=== PATIENT | female | born 1990 | race Hispanic/Latino ===

== ENCOUNTER 2020-05-16 08:38 | Emergency (ER) | payer OTHER ==
[~2020-05-16] VITALS: Ht 154.9 cm; Wt 84.4 kg
[2020-05-16] MEDS ORDERED: TETRACAINE HCL 0.5% OPTH SOLN 4 ML BTL ONE (08:54)
[2020-05-16] MEDS ORDERED: FLUORESCEIN SOD(OPTH) 1 MG STRP ONE (08:55)
[2020-05-16] MEDS ORDERED: CROMOLYN SODIUM10 ML OU ×2 (09:30→12:34)
[2020-05-16] MEDS ORDERED: ACULAR5 ML OU (09:39)
[2020-05-16] MEDS ORDERED: CETIRIZINE HCL10 MG PO (09:42)
[2020-05-16] MEDS ORDERED: FLUORESCEIN SOD(OPTH) 1 MG STRP OP ONE (12:45)
[2020-05-16] MEDS ORDERED: TETRACAINE HCL 0.5% OPTH SOLN 4 ML BTL OP ONE (12:45)
== END 2020-05-16 10:00 | disposition home or self-care (01) ==
LOC: FSED 08:59
DX: H10.13 Acute atopic conjunctivitis, bilateral (principal); H00.014 Hordeolum externum left upper eyelid
CPT/HCPCS: 99283